=== PATIENT | female | born 1970 | race African-American/Black ===

== ENCOUNTER 2016-08-27 01:04 | Emergency (ER) | payer OTHER ==
--- NOTE | ~2016-08-27 | CR63 ---
[facility]. [facility] A Service of [facility] & [facility] / [facility] RADIOLOGY TEXT RESULTS PATIENT: JACQUES ZUNIGA LOCATION: SED : 68 UNIT #: [id number] AGE: [address]: ANGEL DAUGHERTY SEX: F ORDER DR: [id number] [place] [id number] E MR#: [id number] Acc #: [id number] NAME: JACQUES ZUNIGA : 1970 SEX: F STUDY DATE/TIME: 08/27/2016 1:28 UNIT: SED ROOM: STUDY DESCRIPTION: CR Chest 2 View Attending Physician: Angel Daugherty Ordering Physician: Physician Non-Staff Primary Care Physician: Luci Mcbride M.D. MEDICAL IMAGING REPORT This report is preliminary unless electronic signature is present. EXAM 2-view chest, 08/27/2016. INDICATIONS 45-year-old female with a cough, body aches, ear pain, and nasal congestion for 8 days. TECHNIQUE 2-view chest compared with 09/24/2015. FINDINGS Cardiac silhouette unremarkable. Vascularity is normal. Lungs are clear. No effusion or pneumothorax. There is thoracolumbar levoscoliosis. IMPRESSION 1. Negative chest. Incidental thoracolumbar levoscoliosis. Dictated by... Marlon Benito M.D. THIS IS AN ELECTRONICALLY VERIFIED REPORT Marlon Benito M.D. at 08/27/2016 9:58 PM MICHAEL/narinder TD: 08/27/2016 09:57 JOB #: [id number] MEDICAL IMAGING REPORT Page 1 of 1
[~2016-08-27 01:04] MED LIST: BENZONATATE PO; HYDROCHLOROTH12.5 MG; LISINOPRIL-HCTZ1 T16; MEDROL DOSEPAK4 MG PO; NORFLEX100 M1 PO; NORVASC2.5 MG; PHENTERMINE HCL15 MG PO; ROBAXIN 750750 M1 PO; TOPAMAX200 MG; TYLENOL #3 PO; VOLTAREN75 MG PO; ZITHROMAX PO; [UNRECOGNIZED DRUG - OTHER]
[2016-08-27 01:07] LABS: INFLUENZA A NEG (NEG); INFLUENZA B NEG (NEG)
== END 2016-08-27 02:43 | disposition home or self-care (01) ==
LOC: SED 01:04
PROVIDERS: Physician Assistant
DX: J06.9 Acute upper respiratory infection, unspecified (principal); I10 Essential (primary) hypertension; Z90.89 Acquired absence of other organs; Z98.51 Tubal ligation status
CPT/HCPCS: 71020; 87804; 99283

== ENCOUNTER 2016-10-30 23:46 | Emergency (ER) | payer OTHER ==
[2016-10-30] MEDS ORDERED: CLARITIN10 M3 PO (23:54)
== END 2016-10-31 02:48 | disposition home or self-care (01) ==
LOC: SED 23:46
DX: T63.301A Toxic effect of unspecified spider venom, accidental (unintentional), initial encounter (principal); I10 Essential (primary) hypertension; Z23 Encounter for immunization
CPT/HCPCS: 90471; 90715; 99283

== ENCOUNTER → 2016-10-31 | Outpatient (CLI) | payer OTHER ==
[~2016-10-31] MED LIST changes: +CLARITIN10 M3 PO
--- NOTE | ~2016-10-31 | US128 ---
[id number] [facility] [address] [place], [place] [address] [id number] O MR#: [id number] Acc #: [id number] NAME: JACQUES ZUNIGA : 1970 SEX: F STUDY DATE/TIME: 10/31/2016 13:44 UNIT: CGUS ROOM: STUDY DESCRIPTION: Thyroid Attending Physician: Irma Kraft M.D. Referring Physician: Irma Kraft M.D. Ordering Physician: Irma Kraft M.D. Primary Care Physician: Luci Mcbride M.D. MEDICAL IMAGING REPORT This report is preliminary unless electronic signature is present EXAM Thyroid ultrasound 10/31 INDICATIONS Nontoxic multinodular goiter. Follow up thyroid nodules. FINDINGS Sonographic evaluation is performed of the thyroid gland in multiple planes. Comparison made with 12/20/2013. Right lobe measures 4.2 x 1.4 x 1.9 cm. Left lobe measures 3.7 x 1.4 x 1.9 cm. The isthmus is 3 mm in thickness. In the right lobe, there is a hypoechoic ovoid lesion measuring up to 4 millimeters in size near the mid portion. This is not appreciably changed allowing for differences in scanning equipment. There is an ovoid hypoechoic nodule in the left mid thyroid lobe measuring 6 mm in greatest dimension. If this is the same nodule seen on prior study, it is slightly larger where it previously had a maximal dimension of about 4 mm. Consider follow up imaging in 6-12 months. No other definitive nodules are seen. IMPRESSION Bilateral subcentimeter thyroid nodules, 1 of which on the left may be minimally larger assuming it is the same nodule seen in 2013. Surveillance imaging suggested in 6-12 months. Dictated by... Zheng Levin Jr., M.D. THIS IS AN ELECTRONICALLY VERIFIED REPORT Zheng Levin Jr., M.D. at 11/01/2016 3:53 PM EDUARDO/drake TD: 11/01/2016 10:16 JOB #: [id number] MEDICAL IMAGING REPORT Page 1 of 1 COPY
== END | disposition home or self-care (01) ==
LOC: CGUS 10-22 13:30
DX: E04.2 Nontoxic multinodular goiter (principal)
CPT/HCPCS: 76536

== ENCOUNTER → 2017-02-14 | Outpatient (CLI) | payer OTHER ==
--- NOTE | ~2017-02-14 | CT2 ---
[facility] A Service of [facility] & [facility] RADIOLOGY TEXT RESULTS PATIENT: JACQUES ZUNIGA LOCATION: [facility] : [birth year] UNIT #: [id number] AGE: [address]: Jessie Barnes MD SEX: F ORDER DR: [id number] [address] [address] [id number] O MR#: [id number] Acc #: [id number] NAME: JACQUES ZUNIGA : 1970 SEX: F STUDY DATE/TIME: 02/14/2017 16:00 UNIT: [facility] ROOM: STUDY DESCRIPTION: CT Abd and Pelv W Cont Attending Physician: Jessie Barnes M.D. Referring Physician: Jessie Barnes M.D. Ordering Physician: Jessie Barnes M.D. Primary Care Physician: Luci Mcbride M.D. MEDICAL IMAGING REPORT This report is preliminary unless electronic signature is present. EXAM CT abdomen and pelvis with contrast 02/14/2017 HISTORY Right lower quadrant abdominal pain for many years. Additional history of tubal ligation, appendectomy, hypertension. COMPARISON CT abdomen and pelvis with contrast 11/20/2015. TECHNIQUE 5 mm axial images from the lung bases through the lesser trochanters after intravenous and enteric contrast administration. Sagittal and coronal reformatted images were obtained. This CT exam was performed with one or more of the following radiation dose reduction techniques: automatic exposure control, adjustment of mA and/or kV according to patient size, and iterative reconstruction. FINDINGS ABDOMEN: Two cysts are seen within the liver, one measuring 9 mm in the dome, another measuring 7 mm in the left hepatic lobe. These findings are unchanged from 11/20/2015. The liver is mildly steatotic. The gallbladder, spleen, pancreas, adrenals and kidneys are within normal limits. Appendix is surgically absent. The bowel appears non-thickened, non-dilated, non-inflamed. No pathologically enlarged lymph nodes are identified. PELVIS: Urinary bladder, uterus and rectum appear within normal limits. No pelvic free fluid or pathologically enlarged lymph nodes are identified. No acute osseous abnormalities are identified. Mild lumbar curvature STS. [facility] A Service of [facility] & [facility] RADIOLOGY TEXT RESULTS PATIENT: JACQUES ZUNIGA LOCATION: [facility] : [birth year] UNIT #: [id number] AGE: [address]: Jessie Barnes MD SEX: F ORDER DR: toward the right. IMPRESSION 1. No acute findings in the abdomen and pelvis. No CT explanation for the patient's right lower quadrant abdominal pain. 2. 2 subcentimeter low-density hepatic lesions are favored to represent cysts. 3. Mild hepatic steatosis. 4. Appendectomy. Dictated by... Anabelle Robert M.D. THIS IS AN ELECTRONICALLY VERIFIED REPORT Anabelle Robert M.D. at 02/18/2017 10:50 AM ARTURO/lazaro TD: 02/17/2017 23:17 JOB #: [id number] MEDICAL IMAGING REPORT Page 1 of 1
== END | disposition home or self-care (01) ==
LOC: SCT 14:00
DX: R10.31 Right lower quadrant pain (principal); K76.9 Liver disease, unspecified; K76.0 Fatty (change of) liver, not elsewhere classified; Z90.49 Acquired absence of other specified parts of digestive tract
CPT/HCPCS: 74177; Q9967